=== PATIENT | female | born 1980 | race Hispanic/Latino ===

== ENCOUNTER 2020-01-14 08:15 | Outpatient (CLI) | payer BC ==
[2020-01-15 15:05] LABS: SARS-CoV-2 MS2 Positive; SARS-CoV-2 N Gene Negative; SARS-CoV-2 S Gene Negative; SARS-CoV-2 by NAA Not Detected (NotDetected); SARS-CoV-2 orf1ab Negative
== END 2020-01-14 08:16 | disposition home or self-care (01) ==
LOC: LABBT 08:15
PROVIDERS: ATTEND Obstetrics & Gynecology
DX: Z20.828 Contact with and (suspected) exposure to other viral communicable diseases (principal)
CPT/HCPCS: 87635; U0003

== ENCOUNTER 2020-01-17 19:15 | Inpatient (IN) | payer BC ==
[~2020-01-17 19:15] MED LIST: Bupivacaine 0.25% HCL 30 ML VIAL ONE; ePHEDrine 50 MG/ML VIAL ONE
[2020-01-17] MEDS ORDERED: NS w/ Oxytocin 10 units 500 ML IV SCH (19:52)
[2020-01-17] MEDS ORDERED: HYDROcodone/Acetaminophen 5/325 mg Tablet PO PRN ×2 (19:52)
[2020-01-17] MEDS ORDERED: Promethazine HCl 25 MG/ML VIAL IM PRN (19:52)
[2020-01-17] MEDS ORDERED: Ibuprofen 800 MG TAB PO PRN (19:52)
[2020-01-17] MEDS ORDERED: Lidocaine 1% (PF) 30 ML VIAL SC PRN (19:52)
[2020-01-17] MEDS ORDERED: hydrALAZINE 20 MG/ML VIAL SLOW IVP PRN (19:52)
[2020-01-17] MEDS ORDERED: Ondansetron PF 4 MG/2 ML Vial IVP PRN (19:52)
[2020-01-17] MEDS ORDERED: NS / Oxytocin 40 units/1000ml 1,000 ML IV PRN (19:52)
[2020-01-17] MEDS ORDERED: Misoprostol 100 MCG TAB VAG SCH ×2 (20:00)
[2020-01-17 20:24] LABS: Hemoglobin 14.8 g/dL (12.0-16.0); Mean Corpuscular HGB CONC 35.1 g/dL (32.0-36.0); Mean Corpuscular Hemoglobin 34.9 pg (27.0-31.0); Mean Corpuscular Volume 99.4 fL (78.0-98.0); Mean Platelet Volume 10.3 fL (7.4-10.4); Platelet Count 209 thou/uL (130-400); Red Blood Cell (RBC) Count 4.23 mill/uL (4.20-5.40); White Blood Cell (WBC) Count 10.7 thou/uL (4.8-10.8)
[2020-01-17 20:36] VITALS: BMI 25.2
[2020-01-17 21:04] LABS: Syphilis Antibody Nonreactive (Nonreactive); Syphilis Antibody Index 0.03 S/CO (<1.00 Non-Reactive)
[2020-01-17 22:53] LABS: HBSAg Index 0.15 S/CO (0-0.99); Hep B Surf Ag Non-Reactive S/CO (NonReactive)
[2020-01-18] MEDS: Misoprostol 100 MCG TAB VAG SCH ×5 (00:18→22:26)
[2020-01-18] MEDS: Butorphanol Tartrate 1 MG/ML VIAL SLOW IVP PRN ×3 (05:26→07:44)
[2020-01-18] MEDS: Lactated Ringer's 1,000 ML IV SCH ×3 (08:47→22:26)
[2020-01-18] MEDS: NS w/ Oxytocin 10 units 500 ML IV SCH ×2 (08:49→22:27)
--- NOTE | 2020-01-18 11:20 | PDOC.LDPN ---
Labor & Delivery Progress Note - Subjective Subjective: painful contractions - Objective Vital signs reviewed and normal: yes General: breathing through contractions Dilation: 8 Effacement: 90% Station: 0 FHT: category 1 - Assessment (1) 40 weeks gestation of Code(s): Z3A.40 - 40 WEEKS GESTATION OF Current Visit: Yes Status: Acute (2) Gestational diabetes Code(s): O24.419 - GESTATIONAL DIABETES MELLITUS IN , UNSP CONTROL Current Visit: Yes Status: Acute Plan: continue plan of care
[2020-01-18] MEDS ORDERED: Fentanyl 4 mcg/Bup 0.1% Cadd 0 ML ONE (12:36)
[2020-01-18] MEDS ORDERED: Fentanyl 4 mcg/Bup 0.1% Cadd 100 ML ONE (12:38)
[2020-01-18] MEDS ORDERED: diphenhydrAMINE 50 MG/ML VIAL IVP PRN ×2 (13:51→18:38)
[2020-01-18] MEDS ORDERED: Ondansetron PF 4 MG/2 ML Vial IVP PRN ×3 (13:51→21:22)
[2020-01-18] MEDS ORDERED: Lactated Ringer's 500 ML IV PRN (13:51)
[2020-01-18] MEDS ORDERED: EPHEDRINE 25 MG/5 ML SYRINGE SLOW IVP PRN (13:51)
[2020-01-18] MEDS ORDERED: Acetaminophen 325 MG TAB PO PRN (13:51)
[2020-01-18] MEDS ORDERED: Promethazine HCl 25 MG/ML VIAL IM PRN ×2 (13:51→18:38)
[2020-01-18] MEDS ORDERED: Naloxone HCl 0.4 mg/ml Vial IVP PRN ×4 (13:51→18:38)
[2020-01-18] MEDS ORDERED: Communication Order-Pharmacy FS SCH ×2 (14:00→18:45)
[2020-01-18] MEDS ORDERED: Fentanyl 4 mcg/Bupivacaine 0.1% Cassette 100 ML EPIDURAL SCH (14:00)
[2020-01-18] MEDS ORDERED: Oxytocin 10 UNITS/ML VIAL ONE ×2 (15:43→17:46)
[2020-01-18] MEDS ORDERED: ePHEDrine 50 MG/ML VIAL ONE ×2 (15:43→17:46)
[2020-01-18] MEDS ORDERED: Ketorolac Tromethamine 30 MG/ML VIAL ONE ×2 (15:43→17:46)
[2020-01-18] MEDS ORDERED: PHENYLEPHRINE-NS 100 MCG/ML 10 ML SYRINGE ONE ×2 (15:43→17:46)
[2020-01-18] MEDS ORDERED: Lidocaine 2% 10 ML INJ ONE (15:43)
[2020-01-18] MEDS ORDERED: Ondansetron PF 4 MG/2 ML Vial ONE ×2 (15:43→17:46)
[2020-01-18] MEDS ORDERED: Azithromycin 500 MG VIAL ONE (17:36)
[2020-01-18] MEDS: Bicitra 30 ML UDCUP ONE ×2 (17:43→22:24)
[2020-01-18] MEDS ORDERED: Lidocaine 2% MPF 10 ML AMP (For Epidural Use) ONE ×2 (17:46→18:45)
[2020-01-18] MEDS ORDERED: Morphine PF 10 MG/10 ML VIAL ONE (17:46)
--- NOTE | 2020-01-18 17:53 | PDOC.EVN ---
Event Note - Event Note Event Note: CS called at 1515 for arrest @ 8cm, CS delay due to FP resident bump.
[2020-01-18] MEDS ORDERED: L&D-Morphine 4 MG/ML VIAL SLOW IVP PRN (18:38)
[2020-01-18] MEDS ORDERED: Ondansetron HCl/PF 4 MG/2 ML Vial IVP PRN (18:38)
[2020-01-18] MEDS ORDERED: Naloxone HCl 0.4 mg/ml Vial IV PRN (18:38)
[2020-01-18] MEDS ORDERED: Promethazine HCl 25 MG SUPP PR PRN (18:38)
[2020-01-18] MEDS ORDERED: Meperidine HCl/PF 25 MG/ML VIAL SLOW IVP PRN (18:38)
[2020-01-18] MEDS ORDERED: HYDROmorphone 2 MG/ML VIAL SLOW IVP PRN (18:38)
[2020-01-18] MEDS ORDERED: Ketorolac Tromethamine 30 MG/ML VIAL IVP SCH (18:45)
--- NOTE | 2020-01-18 18:57 | PDOC.OPDEL ---
OB Operative/Delivery Note Delivery Dr/Surgeon: Thien Assist: Sophia Pre-Delivery Diagnosis: medically indicated induction (40 weeks, GDM, IVF, AMA) Procedure/Post Delivery Dx: primary low transverse CS Weeks gestation: 40 Anesthesia: epidural - Findings A Sex: female Weight: 8 lb 1 oz - 1 min: 8 - 5 min: 9 - Additional Findings/Plan Placenta delivered: manual removal findings: low transverse hysterotomy without extension (signficant serosal inflammation and vasculature noted), normal tubes, normal ovaries Estimated blood loss: 600ml Post delivery plan: routine recovery
[2020-01-18] MEDS ORDERED: Fentanyl 100 MCG/2 ML VIAL ONE (19:02)
[2020-01-18] MEDS ORDERED: Bisacodyl 10 MG SUPP PR PRN (21:22)
[2020-01-18] MEDS ORDERED: NS / Oxytocin 40 units/1000ml 1,000 ML IV SCH (21:22)
[2020-01-18] MEDS ORDERED: diphenhydrAMINE 25 MG CAP PO PRN (21:22)
[2020-01-18] MEDS ORDERED: hydrALAZINE 20 MG/ML VIAL SLOW IVP PRN (21:22)
[2020-01-18] MEDS ORDERED: Lanolin Ointment 7 GM TUBE TOP PRN (21:22)
[2020-01-18] MEDS ORDERED: Ferrous Sulfate 325 MG TAB PO SCH (21:45)
[2020-01-18] MEDS ORDERED: Docusate Calcium (SURFAK) 240 MG CAP PO SCH (21:45)
[2020-01-19] MEDS: Ketorolac Tromethamine 30 MG/ML VIAL IVP PRN ×2 (02:03→09:49)
--- NOTE | 2020-01-19 03:18 | OP ---
DATE OF PROCEDURE: 01/17/2020 The patient is a 39-year-old female who underwent a primary for arrest of labor for persistent OP. I functioned as nurse first aid to Dr. Kendrick Neumann who is the surgeon of the case. Please refer to her note for complete details. Job ID: [id number] MTDD
[2020-01-19 06:12] LABS: Hemoglobin 11.4 g/dL (12.0-16.0); Mean Corpuscular Hemoglobin 34.3 pg (27.0-31.0); Mean Platelet Volume 9.5 fL (7.4-10.4); Platelet Count 161 thou/uL (130-400); RBC Distribution Width 11.8 % (11.5-14.5); Red Blood Cell (RBC) Count 3.33 mill/uL (4.20-5.40)
[2020-01-19 06:26] LABS: Glucose 87 mg/dL (70-105)
[2020-01-19] MEDS ORDERED: HYDROcodone/Acetaminophen 5/325 mg Tablet PO PRN ×2 (06:45)
[2020-01-19] MEDS ORDERED: Adacel (T-DAP) 0.5 ML SYRINGE IM ONE (09:00)
--- NOTE | 2020-01-19 09:30 | PDOC.PP ---
Post Progress Note Post Day #: 1 Subjective: lochia WNL, breast feeding, pain is minimal PO intake tolerated: yes Flatus: yes Ambulation: yes Vital Signs (12 hours) Temp Pulse Resp BP BP Pulse Ox 01/19/20 08:14 98.4 F 123 H 20 123/75 96 01/19/20 04:25 98.9 F 114 H 18 119/77 01/18/20 23:00 98.6 F 116 H 18 135/78 01/18/20 21:40 98.7 F 105 H 18 138/80 99 Weight Weight 152 lb - Physical Examination General: NAD Respiratory: non-labored breathing Abdominal: no distention Skin: CS incision dry & intact (dressing CDI) Psychiatric: A&Ox3, normal affect Result Diagrams: 01/19/20 05:56 01/19/20 05:56 Additional Labs: Post Labs Hep Bs Antigen Non-Reactive S/CO (NonReactive) 01/17/20 20:15 Blood Type O POSITIVE 01/17/20 21:17 (1) 40 weeks gestation of Code(s): Z3A.40 - 40 WEEKS GESTATION OF Status: Acute (2) Gestational diabetes Code(s): O24.419 - GESTATIONAL DIABETES MELLITUS IN , UNSP CONTROL Status: Acute - Assessment/Plan POD 1 sp 1CS for failure to progress @ 8cm. Doing well. Continue PP care. Pt asymptomatic to tachycardia.
[2020-01-19] MEDS: Prenatal Vitamin 1 TAB PO SCH (09:49)
[2020-01-19] MEDS: Docusate Calcium (SURFAK) 240 MG CAP PO SCH ×2 (09:49→20:21)
[2020-01-19] MEDS: Ferrous Sulfate 325 MG TAB PO SCH ×2 (09:51→15:51)
[2020-01-19] MEDS: Simethicone Chewable 80 MG TAB PO PRN (20:20)
[2020-01-19] MEDS ORDERED: Ibuprofen 800 MG TAB PO SCH (23:45)
[2020-01-20] MEDS ORDERED: Ibuprofen 800 MG TAB PO SCH (06:00)
[2020-01-20] MEDS: Ibuprofen 800 MG TAB PO SCH ×2 (07:28→14:40)
[2020-01-20] MEDS: Prenatal Vitamin 1 TAB PO SCH (07:28)
[2020-01-20] MEDS: Docusate Calcium (SURFAK) 240 MG CAP PO SCH (07:29)
[2020-01-20] MEDS: Simethicone Chewable 80 MG TAB PO PRN (07:33)
--- NOTE | 2020-01-20 08:09 | PDOC.PP ---
Post Progress Note Post Day #: 2 Subjective: POD 2 doing well, breast feeding better. PO intake tolerated: yes Flatus: yes Ambulation: yes Vital Signs (12 hours) Temp Pulse Resp BP BP Pulse Ox 01/20/20 08:00 98.0 F 91 20 121/78 95 01/20/20 05:30 98.4 F 91 15 128/84 01/20/20 00:30 98.6 F 95 15 122/73 Weight Weight 152 lb - Physical Examination General: NAD Respiratory: non-labored breathing Abdominal: no distention (mild tympany) Skin: CS incision dry & intact Psychiatric: A&Ox3, normal affect Result Diagrams: 01/19/20 05:56 01/19/20 05:56 Additional Labs: Post Labs Hep Bs Antigen Non-Reactive S/CO (NonReactive) 01/17/20 20:15 Blood Type O POSITIVE 01/17/20 21:17 (1) 40 weeks gestation of Code(s): Z3A.40 - 40 WEEKS GESTATION OF Status: Acute (2) Gestational diabetes Code(s): O24.419 - GESTATIONAL DIABETES MELLITUS IN , UNSP CONTROL Status: Acute - Assessment/Plan POD2 doing well, plan for DC later today if desired by pt.
[2020-01-20] MEDS: Ferrous Sulfate 325 MG TAB PO SCH (08:50)
[2020-01-20 11:54] VITALS: BP 125/78; TEMP 98.7
--- NOTE | 2020-01-20 15:16 | OP ---
DATE OF PROCEDURE: 01/18/2020 PREOPERATIVE DIAGNOSIS: Induction of labor for gestational diabetes, history of in vitro fertilization, and advanced maternal age at 40 weeks with arrest of dilation and descent at 8 cm. POSTOPERATIVE DIAGNOSIS: Induction of labor for gestational diabetes, history of in vitro fertilization, and advanced maternal age at 40 weeks with arrest of dilation and descent at 8 cm. PROCEDURE PERFORMED: Primary low-transverse section. MARKET RESEARCH MANAGER: Michael Cortes MD. ANESTHESIA: Epidural. ESTIMATED BLOOD LOSS: 600 mL. QUANTITATIVE BLOOD LOSS: Pending at the time of dictation. OPERATIVE FINDINGS: 1. Low-transverse hysterotomy without extension into the myometrium, however, serosal extension on the left side. 2. Normal-appearing tubes and ovaries bilaterally. 3. Very vascular and inflamed-appearing uterine serosa anteriorly. 4. Vigorous female , Apgars 8 and 9, weight 8 pounds and 1 ounce. Delivered from OP position to Nursery. 5. Surgical sites hemostatic. 6. Fundus firm after delivery of placenta. PROCEDURE IN DETAIL: The patient was taken back to the OR with IV fluids running. Once she was in the OR, she was placed in supine position with a left lateral tilt with a Carreno catheter and epidural catheter that were previously placed. The abdomen was prepped and draped in normal fashion for section. The surgeons were gowned and gloved. Anesthesia was tested and found to be adequate. A Pfannenstiel skin incision was made with a scalpel. The skin incision was carried down through thin subcutaneous layer to the fascia. Once the fascia was reached, it was incised in the midline and extended superolaterally using curved Wade scissors. Allyssa clamps were placed at the superior border of the fascia, which was sharply and bluntly dissected off the rectus abdominis muscles in both cephalad and then caudad directions. The rectus muscles were then bluntly . The peritoneum was bluntly entered and stretched laterally. An Andrez O retractor was placed in the peritoneal cavity for retraction, visualization, and protection of the wound. Immediately upon entry to the abdomen, very vascular and inflamed-appearing serosa was noted over the anterior aspect of the uterus. A bladder flap was created and the bladder was dissected down away from the planned hysterotomy site. A low-transverse hysterotomy was made with the scalpel. The hysterotomy was stretched using the Vergara maneuver. The was delivered through the hysterotomy. The nose and mouth were then suctioned. The cord was doubly clamped and cut. The was handed off to special care nurses in attendance. Cord blood was collected. The placenta was delivered. The uterus was exteriorized, massaged to firm and cleared of clot and debris. The uterus was returned to the abdominal cavity and the hysterotomy was inspected. There was no myometrial extension noted. There was an extension of the serosal layer in the left corner. The hysterotomy was then closed with Monocryl suture in a running locked fashion. After the closure of the hysterotomy, the left corner was again inspected with a small active area of bleeding noted laterally and inferior to the hysterotomy corner. The uterus was exteriorized to better visualize this area of bleeding. A figure of eight suture was placed with Monocryl suture and hemostasis was achieved. The uterus was then returned to the abdominal cavity in its natural position with tension off the uterus. The hysterotomy was irrigated and dried. Any small areas of bleeding on the serosa were controlled with Bovie cauterization. The area of concern at the left serosal corner was inspected again and not noted to be bleeding. A layer of FloSeal was applied in this corner as well as the anterior aspect of the uterus and pressure was held for 3 minutes. After the pressure was removed, again, no areas of bleeding were noted. The Andrez O retractor was removed from the abdominal cavity. A layer of Seprafilm was placed over the anterior aspect of the uterus. The peritoneum and muscle were inspected with no bleeding noted. The fascia was closed from corner to corner with PDS suture in running fashion. The subcutaneous layer was irrigated and dried. Three interrupted subcutaneous stitches were placed for reapproximation of the subcutaneous layer. The skin was closed with 4-0 Monocryl and dressed with Dermabond dressing. The uterus palpated firm at the end of the case and there was minimal bleeding at the end of the section. The patient tolerated the procedure well. Job ID: [id number]
== END 2020-01-20 17:52 | disposition home or self-care (01) | DRG 788 ==
LOC: L&D 19:23 → 3SE 01-18 21:28
PROVIDERS: ADMIT Obstetrics & Gynecology; ATTEND Obstetrics & Gynecology
PROC: 10D00Z1 Extraction of Products of Conception, Low, Open Approach (ICD-10-PCS; principal; 2020-01-18)
DX: O24.429 Gestational diabetes mellitus in childbirth, unspecified control (principal); O76 Abnormality in fetal heart rate and rhythm complicating labor and delivery; O61.0 Failed medical induction of labor; O62.0 Primary inadequate contractions; Z20.828 Contact with and (suspected) exposure to other viral communicable diseases; Z3A.40 40 weeks gestation of pregnancy; Z37.0 Single live birth
CPT/HCPCS: 36415; 36416; 51702; 82947; 85027; 86780; 86850; 86900; 86901; 87340; 87635; J0595; J0690; J1885; J2001; J2270; J2405; J2590; J3010; J3490; S0020; U0003